=== PATIENT | male | born 1950 | race Caucasian/White ===

== ENCOUNTER → 2020-04-07 09:59 | Outpatient (CLI) | payer MEDICARE, OTHER, SELFPAY ==
--- NOTE | 2020-04-07 18:32 | DI.NM.S_ITS ---
DATE OF SERVICE: 04/07/2020 PROCEDURE: Exercise perfusion study. INDICATIONS: Chest pain, paroxysmal AFib. RADIOPHARMACEUTICAL: 25.6 millicurie technetium-99m Myoview IV was injected at stress and 13.2 millicurie technetium-99m Myoview IV was injected at rest. CARDIAC STRESS: The patient underwent exercise perfusion study under the supervision of an attending staff. The patient walked on Shaun protocol for 11 minute and 11 seconds, achieved 106 percent of target heart rate. Baseline blood pressure 128/78. Peak blood pressure 219/80, suggestive of hypertensive blood pressure response. No anginal symptoms. Baseline rhythm was sinus. During stress, there were significant artifacts seen. Hence, unable to interpret EKG at peak exercise, however, in immediate recovery, no significant ischemic changes. Occasional PVC. No significant sustained arrhythmia. RAW DATA: There is increased subdiaphragmatic activity. GATED STUDY: Resting LV ejection fraction is 60 percent without any obvious wall motion abnormalities. The stress LV ejection fraction is 75 percent. Resting end-diastolic volume 123 mL. TID ratio 0.64, which is within normal limits. Lung/ heart ratio 0.30, which is within normal limits. MYOCARDIAL PERFUSION: Stress supine and resting supine images revealed a small size, minimally decreased perfusion of basal inferior wall, which got resolved during prone images, suggestive of diaphragmatic tissue attenuation artifact. No convincing ischemia or infarction pattern seen. CONCLUSION: I will call this study a normal myocardial perfusion study with evidence of diaphragmatic tissue attenuation artifact, which got resolved during prone images. Excellent exercise tolerance. Functional aerobic impairment -57 percent. Preserved LV function. Hypertensive blood pressure response. No significant arrhythmias or anginal symptoms. Overall, this is a low risk myocardial perfusion scan. Mikey Beyer - [employer]/ольга/lc doc#: [id number]/job#: [id number] dd: 04/07/2020 17:03:00 dt: 04/07/2020 18:13:00 DICTATING MD/COPIES TO: Rodney Franklin MD COPIES MNE: BRAYAN;
== END ==
PROVIDERS: PCP Student in an Organized Health Care Education/Training Program; Referring Provider Student in an Organized Health Care Education/Training Program; Visit Provider Student in an Organized Health Care Education/Training Program
DX: I48.0 Paroxysmal atrial fibrillation (principal); R07.9 Chest pain, unspecified
CPT/HCPCS: 78452; A9502